=== PATIENT | female | born 1955 | race Caucasian/White ===

== ENCOUNTER → 2017-09-28 | Outpatient (CLI) | payer OTHER ==
[~2017-09-28] VITALS: Ht 154.9 cm; Wt 69.4 kg
[~2017-09-28] MED LIST: CRESTOR20 MG PO; DITROPAN XL10 MG PO; LITHIUM CARBON300 M1 PO; LITHIUM CARBON600 MG PO; PAIN & FEVER325 MG PO; PROZAC20 MG PO; SKIN TREATMENT225 GM TP; TEGRETOL-XR,CA100 MG PO; TRIPLE ANTIB28.35 GM TP; ZESTRIL10 MG PO
== END | disposition home or self-care (01) ==
LOC: AMB 08:56
DX: Z12.11 Encounter for screening for malignant neoplasm of colon (principal); D12.2 Benign neoplasm of ascending colon; D12.3 Benign neoplasm of transverse colon; K64.8 Other hemorrhoids; Z86.010 Personal history of colon polyps; I10 Essential (primary) hypertension
CPT/HCPCS: 88305; 93005; J2250